=== PATIENT | male | born 1960 | race African-American/Black ===

== ENCOUNTER 2021-02-06 21:02 | Emergency (ER) | payer OTHER ==
[~2021-02-06] VITALS: Ht 180.3 cm; Wt 113.6 kg
[~2021-02-06 21:02] MED LIST: VENL-68 PO
[2021-02-06 23:27] VITALS: BP 132/79
== END 2021-02-06 23:45 | disposition home or self-care (01) ==
LOC: EMS 21:07
DX: R06.02 Shortness of breath (principal); R45.1 Restlessness and agitation; F31.9 Bipolar disorder, unspecified; Z79.899 Other long term (current) drug therapy
CPT/HCPCS: 71045; 99283

== ENCOUNTER 2022-08-24 01:45 | Emergency (ER) | payer OTHER ==
[~2022-08-24] VITALS: Ht 175.3 cm; Wt 109.1 kg
[2022-08-24 02:31] LABS: BASOPHILS % (AUTO) 0.5 % (0.0-2.0); EOSINOPHILS % (AUTO) 0.3 % (1.0-6.0); HEMATOCRIT 39.3 % (41-53); HEMOGLOBIN 13.7 g/dL (13.5-17.5); LYMPHOCYTES # (AUTO) 1.7 K/uL (1.0-4.8); MEAN CORPUSCULAR HEMOGLOBIN 30.9 pg (26.0-34.0); MEAN CORPUSCULAR HGB CONC 34.8 G/dL (31.0-37.0); MEAN CORPUSCULAR VOLUME 89 fL (80-100); MONOCYTES # (AUTO) 1.2 K/uL (0.1-1.0); NEUTROPHILS # (AUTO) 6.1 K/uL (1.8-7.7); NEUTROPHILS % (AUTO) 67.2 % (40.0-70.0); PLATELET COUNT (AUTO) 243 K/uL (150-450); RED BLOOD CELL COUNT(AUTO) 4.44 MIL/uL (4.50-5.90); RED CELL DISTRIBUTION WIDTH 14.4 % (11.5-14.5)
[2022-08-24 02:40] LABS: ANION GAP 10 mmol/L (8-16); CALCIUM, TOTAL 8.8 mg/dL (8.8-10.5); CARBON DIOXIDE 25 mmol/L (22-29); CHLORIDE 106 mmol/L (98-107); CREATININE 1.05 mg/dL (0.60-1.30); GLOMERULAR FILTR. RATE CALC > 60 mL/min (>60); GLUCOSE,RANDOM 95 mg/dL (70-110); POTASSIUM 3.7 mmol/L (3.5-5.1); SODIUM SERUM 141 mmol/L (136-145); UREA NITROGEN, BLOOD 11 mg/dL (7-18)
[2022-08-24] MEDS ORDERED: IPRATROPIUM BROMIDE 0.5 MG/2.5 ML NEB SOLUTION NEB ONE (02:45)
[2022-08-24] MEDS ORDERED: ALBUTEROL SULFATE 2.5 MG/0.5 ML NEB SOLUTION NEB ONE (02:45)
[2022-08-24 03:04] LABS: COVID AG,FIA SOURCE NASAL SWAB
[2022-08-24 03:05] LABS: ALANINE AMINOTRANSFERASE 16 U/L (12-78); ALBUMIN 3.3 g/dL (3.4-5.0); ALKALINE PHOSPHATASE 74 U/L (46-116); ASPARTATE AMINOTRANSFERASE 22 U/L (15-37); BILIRUBIN,TOTAL 0.5 mg/dL (0.1-1.0); CREATINE KINASE, TOTAL ONLY 457 U/L (39-308); TOTAL PROTEIN, SERUM 7.7 g/dL (6.4-8.2)
[2022-08-24 03:09] LABS: B-TYPE NATRIURETIC PEPTIDE 55 pg/mL (0-100)
[2022-08-24 03:30] LABS: INFLUENZA TYPE A NEGATIVE FOR TYPE A (NEGATIVE); INFLUENZA TYPE B NEGATIVE FOR TYPE B (NEGATIVE)
[2022-08-24] MEDS ORDERED: LEVOFLOXACIN 500 MG/D5% WATER 100 ML IV ONE (04:00)
[2022-08-24 05:49] VITALS: BP 137/76
== END 2022-08-24 07:08 | disposition home or self-care (01) ==
LOC: EMS 01:45
DX: J18.9 Pneumonia, unspecified organism (principal); F17.210 Nicotine dependence, cigarettes, uncomplicated; Z20.822 Contact with and (suspected) exposure to COVID-19
CPT/HCPCS: 71045; 80053; 82550; 83880; 84484; 85025; 87804; 93005; 94060; 94640; 96365; 99285; 36415-L1; 36415-TC; J7613

== ENCOUNTER 2023-08-21 13:18 | Emergency (ER) | payer OTHER ==
[~2023-08-21] VITALS: Ht 175.3 cm; Wt 109.1 kg
[2023-08-21 13:21] VITALS: TEMP 98.3
[2023-08-21] MEDS: KETOROLAC TROMETHAMINE 30 MG/ML VIAL IM ONE (14:38)
[2023-08-21] MEDS ORDERED: IBUP-1506 PO (16:07)
[2023-08-21] MEDS ORDERED: CYCL-448 PO (16:07)
[2023-08-21 16:10] VITALS: BP 134/78; PULSE 88; RESP 18
== END 2023-08-21 16:12 | disposition home or self-care (01) ==
LOC: EMS 13:18
DX: M25.552 Pain in left hip (principal)
CPT/HCPCS: 99283; 73503; 96372; J1885